=== PATIENT | female | born 1945 | race Asian ===

== ENCOUNTER → 2020-10-31 | Outpatient (CLI) | payer MEDICARE, OTHER | END | disposition home or self-care (01) | LOC: RADMN 12:41 | PROVIDERS: ATTEND Internal Medicine Geriatric Medicine | DX: M16.0 Bilateral primary osteoarthritis of hip (principal); M47.816 Spondylosis without myelopathy or radiculopathy, lumbar region | CPT/HCPCS: 73503 ==

== ENCOUNTER → 2021-10-02 | Outpatient (CLI) | payer MEDICARE, OTHER | END | disposition home or self-care (01) | LOC: LABMN 11:52 | PROVIDERS: ATTEND Internal Medicine Geriatric Medicine | DX: M19.012 Primary osteoarthritis, left shoulder (principal); M79.622 Pain in left upper arm | CPT/HCPCS: 73030-TC; 73060-TC ==

== ENCOUNTER → 2024-02-17 | Outpatient (CLI) | payer MEDICARE, OTHER | END | disposition home or self-care (01) | LOC: RADMN 15:11 | PROVIDERS: ATTEND Internal Medicine Geriatric Medicine | DX: J98.8 Other specified respiratory disorders (principal); R06.02 Shortness of breath; I70.0 Atherosclerosis of aorta; R60.9 Edema, unspecified | CPT/HCPCS: 71046 ==